=== PATIENT | male | born 1955 | race Caucasian/White ===

== ENCOUNTER 2017-02-22 18:13 | Emergency (ER) | payer BC ==
[~2017-02-22] VITALS: Ht 177.8 cm; Wt 91.3 kg
[2017-02-22 18:42] LABS: MCH 32.1 PG (29.0-34.0); MCHC 34.1 G/DL (30.0-36.0); MEAN PLAT.VOLUME 10.8 uM^3 (9.0-12.4); PLATELET COUNT 189 K/uL (156-360); RBC DIS.WIDTH-CV 12.9 % (11.8-14.6); RBC DIS.WIDTH-SD 44.2 % (39-53); RED BLOOD COUNT 4.68 M/uL (4.00-5.50); WHITE BLOOD COUNT 9.3 K/uL (4.1-10.2)
[2017-02-22 19:03] LABS: CHLORIDE 98 mEq/L (99-109); POTASSIUM 3.9 mEq/L (3.7-5.4); SODIUM 134 mEq/L (136-147)
[2017-02-22 19:05] LABS: GLUCOSE 132 mg/dL (70-99)
[2017-02-22 19:06] LABS: ANION GAP 15 MEQ/L (2-14)
[2017-02-22 19:07] LABS: TOTAL BILIRUBIN 1.9 mg/dL (0.0-1.0)
[2017-02-22 19:08] LABS: ALKALINE PHOSPHATASE 208 IU/L (3-129)
[2017-02-22 19:09] LABS: GFR ESTIMATE (CALCULATED) > 59 mL/min/
[2017-02-22 19:10] LABS: UREA NITROGEN (BUN) 17 mg/dL (9-23)
[2017-02-22 19:12] LABS: LIPASE 11 U/L (1.0-51.0)
[2017-02-22 19:44] LABS: ABS NEUTROPHIL COUNT 8.3; ANISOCYTOSIS 1+; BAND NEUTROPHILS 18.3 % (0-8.0); EOSINOPHIL ABS CT 0.2; EOSINOPHILS 1.7 % (0-5.0); INSTRUMENT ABS NEUTROPHIL CT 7.9 K/uL; LYMPHOCYTES 5.2 % (15.0-45.0); MACROCYTES 1+; SEG.NEUTROPHILS 71.3 % (46.0-76.0); TOXIC GRANULATION 2+
[2017-02-22 21:18] VITALS: BP 135/80
[2017-02-24 10:49] LABS: HBSG INDEX 0.19; HPCA INDEX 0.12
[2017-02-24 10:50] LABS: ANTI-HEPATITIS A VIRUS (IGM) Nonreactive; HAV INDEX 0.09
[2017-02-24 10:51] LABS: ANTI-HEPATITIS B CORE (IGM) Nonreactive; HBC IgM INDEX 0.08
== END 2017-02-22 21:18 | disposition home or self-care (01) ==
LOC: EME 18:13
PROVIDERS: Emergency Medicine; Physician Assistant Medical
DX: R50.9 Fever, unspecified (principal); R79.89 Other specified abnormal findings of blood chemistry; Z87.891 Personal history of nicotine dependence
CPT/HCPCS: 74177; 80053; 80074; 83605; 83690; 85025; 99281; 99284; J7030

== ENCOUNTER → 2017-03-08 | Outpatient (CLI) | payer BC ==
[~2017-03-08] VITALS: Ht 177.8 cm; Wt 84.8 kg
[~2017-03-08] MED LIST: CEFTIN500 MG PO; NORVASC5 MG PO; PREDNISONE20 MG PO; VIBRAMYCIN100 MG PO
== END | disposition home or self-care (01) ==
LOC: OPR 08:22 → EDSTATUS 09:00
PROC: BW21ZZZ Computerized Tomography (CT Scan) of Abdomen and Pelvis (ICD-10-PCS; principal; 2017-03-08)
DX: K76.0 Fatty (change of) liver, not elsewhere classified (principal); R59.1 Generalized enlarged lymph nodes; R74.8 Abnormal levels of other serum enzymes; R50.9 Fever, unspecified; Z53.09 Procedure and treatment not carried out because of other contraindication
CPT/HCPCS: 74150; J3010